=== PATIENT | female | born 1960 | race Caucasian/White ===

== ENCOUNTER 2023-01-28 10:18 | Outpatient (AMB) | payer OTHER, SELFPAY ==
--- NOTE | 2023-01-28 10:19 | MHC.OFFWIV ---
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 no known injuries. 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 Patient manually removed part of her right thumbnail. Now the area is throbbing and painful. PFSH Social History Patient Tobacco Use Status: Former Tobacco user Physical Exam Vital Signs: Last Vital Signs Temp 97.2 F 01/28/23 10:22 Pulse 78 01/28/23 10:22 BP 130/80 01/28/23 10:22 Pulse Ox 97 01/28/23 10:22 Oxygen Delivery Method Room Air 01/28/23 10:22 BMI result Body Mass Index 32.1 Skin Other: Right thumb: Tenderness along the medial margin of the nail. Small granulation tissue present on the side. Assessment & Plan Assessment & Plan (1) Paronychia of right thumb: Code(s): L03.011 - Cellulitis of right finger Plan: Antibiotic and meloxicam called in. If symptoms do not improve to follow-up here. Medications: New sulfamethoxazole-trimethoprim 800-160 mg (Bactrim DS) 1 tab PO BID 10 tabs 0RF 5 days meloxicam 15 mg PO DAILY 14 tabs 0RF Coding Level of Care Code New Pt Level 3 (99675) Diagnoses Paronychia of right thumb L03.011
[2023-01-28 10:22] VITALS: BP 130/80; PULSE 78; TEMP 36.2; O2SAT 97; BMI 32.1
== END 2023-01-28 10:55 | disposition home or self-care (01) ==
PROVIDERS: Visit Provider Internal Medicine
DX: L03.011 Cellulitis of right finger (principal)
CPT/HCPCS: 99203

== ENCOUNTER 2024-04-15 08:35 | Outpatient (REF) | payer OTHER, SELFPAY ==
[2024-04-15 10:43] LABS: Hematocrit 39.6 % (37.0-47.0); Hemoglobin 12.9 g/dl (12.0-16.0); Mean Corpuscular HGB Conc 32.6 g/dl (31.0-35.0); Mean Corpuscular Hemoglobin 28.7 pg (27.0-33.0); Mean Platelet Volume 9.9 fL (9.4-12.3); Platelet Count 398 X10*3/uL (160-400); Red Cell Distribution Width 12.8 % (11.0-16.0); White Blood Count 7.5 X10*3/uL (4.8-10.8)
[2024-04-15 11:09] LABS: Alanine Aminotransferase 16 U/L (0-31); Albumin Level 4.3 g/dL (3.5-5.0); Alkaline Phosphatase 65 U/L (39-117); Anion Gap 11 (12-20); Aspartate Amino Transferase 17 U/L (5-31); Bilirubin Total 0.3 mg/dL (0.0-1.0); Blood Urea Nitrogen 17 mg/dL (9-16); Calcium 9.9 mg/dL (8.4-10.2); Carbon Dioxide 28 mmol/L (22-29); Chloride 107 mmol/L (96-108); Cholesterol 220 mg/dL (<200); Estimated Glomerular Filt Rate > 60; Glucose Fasting 105 mg/dL (60-99); HDL Cholesterol 59 mg/dL (>40); LDL Cholesterol Calculated 130 mg/dL (<100); Potassium 3.8 mmol/L (3.3-5.1); Sodium 142 mmol/L (135-145); Total Protein 7.3 g/dL (6.5-8.0); Triglycerides 156 mg/dL (<150)
[2024-04-15 11:29] LABS: TSH reflex Free T4 2.39 uIU/mL (0.32-4.0); Vitamin D 25-OH Total 28.9 ng/mL (>30)
[2024-04-15 11:32] LABS: Estimated Average Glucose 108 mg/dL; Hemoglobin A1c % 5.4 % (<6.0)
[2024-04-15 11:37] LABS: Folate 13.9 ng/mL (> or = 4.0); Vitamin B12 509 pg/mL (200-900)
[2024-04-15 11:47] LABS: Creatinine Urine 39.41 mg/dL; Microalbumin Urine < 5.0 mg/L
== END 2024-04-15 08:36 | disposition home or self-care (01) ==
LOC: HO.WFDLDS 08:35
PROVIDERS: Visit Provider Nurse Practitioner Family
DX: Z00.00 Encounter for general adult medical examination without abnormal findings (principal); Z13.1 Encounter for screening for diabetes mellitus
CPT/HCPCS: 36415; 80053; 80061; 82043; 82306; 82570; 82607; 82746; 83036; 84443; 85027

== ENCOUNTER 2024-04-27 11:00 | Outpatient (AMB) | payer OTHER, SELFPAY ==
--- NOTE | 2024-04-27 11:21 | MHC.PC.OV ---
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 Required: No Allergies Penicillins Adverse Reaction (Mild, Verified 04/27/24 11:39) rash Medication List - Last Reconciled 04/27/24 by FRED Tavares No Known Home Meds Tobacco use date assessed: 04/27/24 Dental Screening Dental Screen Date: 04/27/24 Did you have a dental visit in the last 12 months?: Yes Did you have a dental problem in the last 6 months where you did not have access to dental care?: No Was dental information given to patient?: Patient has dentist HPI HPI Comments History of Present Illness Details 63 y/o F with Vit D def, HLD, former smoker, ulcerative colitis The patient is a 63-year-old female presenting as a new patient for a CPE. Concerns about oral aphthous ulcers and leg cramps. The patient reports a history of aphthous ulcers in various locations within the oral cavity. Recently, these ulcers have increased in frequency over the last year, particularly one on the tip of the tongue and under the tongue, attributed to stress. Previous use of topical alcohol has been utilized for relief. Additionally, she experiences occasional nausea and jaw pain post-dental procedures, with potential exacerbation due to materials used in dental fillings. The patient also notes experiencing leg cramps for about a year, worsening over the same period. Hydration is mainly through coffee, not counting toward fluid intake. Past management was through electrolyte replenishment strategies like eating pickles or mustard. Previous history includes ulcerative colitis diagnosed in her 30s, leading to regular colonoscopic surveillance every five years, though the current colonic status was not detailed. Health Maintenance - Does not receive flu vaccines as she reports never having had the flu. - Normal blood counts and kidney function. - Borderline high fasting blood sugar: 105 mg/dL, normal A1c: 5.4%. - Hypovitaminosis D, level: 28.9 ng/mL (normal: >30 ng/mL); advised calcium and vitamin D supplementation. - Cholesterol panel shows total cholesterol: 220 mg/dL (normal <200), LDL: 130 mg/dL (normal <100), HDL: 59 mg/dL, triglycerides: 156 mg/dL (normal <150). - Bone density testing recommended. - Routine colonoscopy planned due to past ulcerative colitis. - Recent mammogram completed earlier this year. Tdap 2020 Physical Exam General: Well developed, well nourished, in no acute distress. Appears stated age. Head: Normocephalic, atraumatic. Eyes: Pupils are equal, round and reactive to light and accommodation. Conjunctivae are clear. Vision grossly normal. Ears: Tympanic membranes clear bilaterally, external auditory canal within normal limits Nose: Patent, without discharge. Mouth: There are ulcers noted on the tip of the tongue. No inflammation, no post nasal drip, no plaques nor exudates. Neck: Supple, no adenopathy or thyromegaly. Lungs: Clear to auscultation bilaterally. No rales, rhonchi or wheeze noted. Good air flow in all parham. Heart: Regular rate and rhythm. No murmurs, click, rubs or gallops are noted. Abdomen: Bowel sounds present in all quadrants. The abdomen is soft, nontender, with no masses or organomegaly noted. No hernias are noted. Musculoskeletal: Joints are nontender, without swelling, redness, or effusions. Range of motion is observed to be normal. Pulses: Peripheral pulses are equal and palpable bilaterally. Extremities: No clubbing, cyanosis noted. Swelling in feet noted at the end of the day, resolves by morning. Neurologic: Gait and station normal. Cranial Nerves 2-12 intact. Motor strength grossly symmetrical and intact. No sensory loss. Balance normal. Skin: No rashes, ulcers, or lesions noted. Turgor is good. Skin color is good. Hair and nails are without abnormalities. Psych: Normal eye contact, affect and mood appropriate, and normal interactions. Patient is alert and appropriate to context. Results - Lab: Normal blood counts, normal electrolytes, borderline glucose, normal A1c, low vitamin D. Labs from 04/15/2024 show a normal CBC, normal electrolytes, normal renal function, fasting glucose of 105, hemoglobin A1c 5.4%, normal LFTs, elevated total cholesterol 220, triglycerides 156, LDL 130, HDL 59, normal B12, low vitamin-D 28.9, normal TSH and folate, normal urine microalbumin creatinine ratio Plan - For oral aphthous ulcers, prescribe Valacyclovir for episodic treatment. Encourage earlier intervention at ulcer onset. - For leg cramps, suggest pickles or mustard. Encourage increased water intake for proper hydration. - Hyperlipidemia management through dietary modifications targeting LDL reduction. - Initiate calcium and vitamin D supplementation due to insufficiency. - Schedule bone density scan and colonoscopy due to ulcerative colitis history. - Reassess fasting labs in six months to monitor metabolic parameters. - Provide general lifestyle advice and monitor health maintenance metrics closely, including routine mammography and potential influenza vaccination discussion. Patient was informed and verbally consented to the use of an ambient scribe for clinic note documentation during this visit. Discussion Notes During the consultation, I reviewed the management and treatment options for the patient's oral ulcers, suspecting a viral etiology possibly linked to stress. I prescribed Valacyclovir and discussed the administration at the onset of symptoms. For the leg cramps, I recommended dietary interventions such as ingestion of brine or mustard to alleviate cramping and highlighted the importance of adequate hydration. We discussed the implications of her current cholesterol levels and borderline blood sugar levels and developed a plan for dietary modifications to reduce LDL cholesterol. Additionally, I recommended initiating calcium and vitamin D supplements due to low levels of vitamin D and potential implications for bone health. We agreed on a plan to schedule a bone density test and colonoscopy. The patient was informed of the importance of keeping routine follow-up appointments to monitor her progress, and agreed to revisit lab tests in six months. Patient Instructions - Begin Valacyclovir at the earliest symptom of oral ulcer occurrence. - Increase water intake throughout the day. - Incorporate pickle juice or mustard into the diet as needed for leg cramps. - Focus on dietary changes to help lower cholesterol. - Start calcium and vitamin D supplements as advised. - Schedule recommended bone density scan and colonoscopy. - Return for follow-up labs in six months to monitor cholesterol and glucose levels. - Use the patient portal for appointment scheduling and accessing test results. An additional 15 minutes was spent addressing the problem(s) noted at todays visit. This includes time spent before the visit reviewing the chart, time spent during the visit, and time spent after the visit on documentation [facility] Medical History (Updated 04/27/24 @ 17:19 by Jerilyn Medina [facility]-) Breast adenoma Surgical History (Updated 04/27/24 @ 11:28 by Romie Cristina MA) H/O breast surgery Family History Mother Hypertension Paternal Grandfather Diabetes Paternal Grandmother Diabetes Father Cardiovascular disease Sister Cancer of kidney Social History (Updated 04/27/24 @ 11:25 by Romie Cristina MA) Household Members: Spouse Both parents involved: No Caregiver staying overnight: No Housing: House Are you a primary child care teacher to a significant other at home: No Do you presently have visiting nurse or other home services: No 75 years or older and lives alone: No Alcohol intake: current Alcohol intake frequency: a few times a month Patient Tobacco Use Status: Never used Tobacco e-Cigarette/Vaping Use: Never Used Second Hand Smoke Exposure: No service: No Current occupational status: employed Current occupation: [employer] Cognitive needs: No Hearing needs: No Vision needs: Yes (wear glasses) Questionnaire PHQ-9 Over the last 2 weeks, how often have you been bothered by any of the following problems? 1. Little interest or pleasure in doing things: not at all 2. Feeling down, depressed, or hopeless: several days 3. Trouble falling or staying asleep, or sleeping too much: not at all 4. Feeling tired or having little energy: not at all 5. Poor appetite or overeating: several days 6. Feeling bad about yourself - or that you are a failure or have let yourself or your family down: several days 7. Trouble concentrating on things, such as reading the newspaper or watching television: not at all 8. Moving or speaking so slowly that other people could have noticed. Or the opposite - being so fidgety or restless that you have been moving around a lot more than usual: not at all 9. Thoughts that you would be better off or of hurting yourself in some way: not at all Total score: 3 Depression Screening Interpretation: Negative Depression Screening Done: Yes 23491 - PHQ-9 Billing: Yes Source: Developed by Drs. Froylan Pena, Heavenly Molina, Facundo Addison and colleagues, with an educational terrence from [employer] Thrive Questionnaire Date Thrive assessed: 04/27/24 I am a: Patient What is your living situation today?: I have a steady place to live Within the past 12 months, did the food you bought not last and you didn't have the money to get more?: Never true Within the past 12 months, did you worry whether your food would run out before you got money to buy more?: Never true Do you have trouble paying for medicines?: No Do you have trouble getting transportation to medical appointments?: No Do you have trouble paying your heating and electricity bill?: No Do you have trouble taking care of your child, family member or friend?: No Do you have trouble with day-to-day activities such as bathing, preparing meals, shopping, managing finances, etc.?: No Are you currently unemployed and looking for a job?: No Are you interested in more education?: No Please select the resources that you would like help with: None Currently or been in a relationship where the following occur: No concerns reported THRIVE Score: 0 AUDIT C Alcohol Use Questionnaire (AUDIT-C) 1. How often do you have a drink containing alcohol?: Monthly or less 2. How many drinks containing alcohol do you have on a typical day when you are drinking?: 1 or 2 3. How often do you have six or more drinks on one occasion?: Never Total Score: 1 Score Reviewed/Action Taken: Yes BENJY-7 AMB Questionnaire BENJY-7 Date BENJY - 7 assessed: 04/27/24 Feeling nervous, anxious, or on edge: 1 = Several days Not being able to stop or control worryin = Several days Worrying too much about different things: 1 = Several days Trouble relaxin = Several days Being so restless that it is hard to sit still: 0 = Not at all Becoming easily annoyed or irritable: 1 = Several days Feeling afraid as if something awful might happen: 1 = Several days Total BENJY-7 score (0-4 normal; 5-9 mild; 10-14 moderate; 15-21 severe): 6 Source: Developed by Drs. Froylan Pena, Heavenly Molina, Facundo Addison and colleagues, with an educational terrence from [employer] BENJY-7 Assessment Billing BENJY-7 Assessment Tool: BENJY-7 Assessment 03460 Physical exam (Primary Care) Vital Signs: Last Vital Signs Pulse 75 04/27/24 11:28 Resp 13 04/27/24 11:28 BP 122/70 04/27/24 11:28 Pulse Ox 96 04/27/24 11:28 Oxygen Delivery Method Room Air 04/27/24 11:28 BMI result Body Mass Index 31.5 BMI Assessment/Plan discussion: High BMI High, discussed plan: lifestyle Tobacco/Smoking Status: Tobacco use Status Tobacco use date assessed 04/27/24 04/27/24 11:30 Patient Tobacco Use Status Never used Tobacco 04/27/24 11:30 e-Cigarette/Vaping Use Never Used 04/27/24 11:30 PHQ-9: PHQ-9 Score PHQ-9: Total score 3 04/27/24 11:50 Depression Screening Interpretation: Negative Thrive Assessment: Date of Thrive Assessment Date Thrive assessed 04/27/24 04/27/24 11:30 Currently or been in a relationship where the following occur: No concerns reported Coding Level of Care Code New Pt Level 2 (69099) New Pt Prev Care 40-64y(61638) Diagnoses Encounter for general adult medical examination without abnormal findings Z00.00 Vitamin D deficiency E55.9 Moderate mixed hyperlipidemia not requiring statin therapy E78.2 Hyperlipidemia type: moderate mixed hyperlipidemia not requiring statin therapy Recurrent oral ulcers K13.79 Leg cramps R25.2 Ulcerative colitis without complications, unspecified location K51.90 Ulcerative colitis location: unspecified ulcerative colitis location Digestive disease complication type: without complication BMI 31.0-31.9,adult Z68.31 Class 1 obesity due to excess calories with serious comorbidity and body mass index (BMI) of 31.0 to 31.9 in adult E66.811; E66.09; Z68.31 Obesity type: due to excess calories Serious obesity comorbidity presence: with serious comorbidity Additional Codes BENJY-7 Assessment Billing - BENJY-7 Assessment Tool: BENJY-7 Assessment 49711 ([id number]) PHQ-9 - 10763 - PHQ-9 Billing: Yes ([id number]) Assessment & Plan Assessment & Plan (1) Encounter for general adult medical examination without abnormal findings: Code(s): Z00.00 - Encounter for general adult medical examination without abnormal findings Category: Medical (2) Vitamin D deficiency: Code(s): E55.9 - Vitamin D deficiency, unspecified Category: Medical (3) Hyperlipidemia: Code(s): E78.5 - Hyperlipidemia, unspecified Category: Medical Qualifiers: Hyperlipidemia type: moderate mixed hyperlipidemia not requiring statin therapy Qualified Code(s): E78.2 - Mixed hyperlipidemia (4) Recurrent oral ulcers: Code(s): K13.79 - Other lesions of oral mucosa Category: Medical (5) Leg cramps: Code(s): R25.2 - Cramp and spasm Category: Medical (6) Ulcerative colitis: Code(s): K51.90 - Ulcerative colitis, unspecified, without complications Category: Medical Qualifiers: Ulcerative colitis location: unspecified ulcerative colitis location Digestive disease complication type: without complication Qualified Code(s): K51.90 - Ulcerative colitis, unspecified, without complications (7) BMI 31.0-31.9,adult: Code(s): Z68.31 - Body mass index [BMI] 31.0-31.9, adult Category: Medical (8) Class 1 obesity with body mass index (BMI) of 31.0 to 31.9 in adult: Comment: HLD Code(s): E66.811 - Obesity, class 1; Z68.31 - Body mass index [BMI] 31.0-31.9, adult Category: Medical Qualifiers: Obesity type: due to excess calories Serious obesity comorbidity presence: with serious comorbidity Qualified Code(s): E66.811 - Obesity, class 1; E66.09 - Other obesity due to excess calories; Z68.31 - Body mass index [BMI] 31.0-31.9, adult Plan . Orders: Orders XR DEXA axial skeleton Today E55.9 - Vitamin D deficiency, unspecified, Z13.820 - Encounter for screening for osteoporosis Lipid Panel 6 Months E55.9 - Vitamin D deficiency, unspecified, E78.5 - Hyperlipidemia, unspecified Comprehensive [place]. Panel Fast 6 Months E55.9 - Vitamin D deficiency, unspecified, E78.5 - Hyperlipidemia, unspecified Vitamin D 25-OH Total 6 Months E55.9 - Vitamin D deficiency, unspecified, E78.5 - Hyperlipidemia, unspecified Referrals Gastroenterology Referral Z12.11 - Encounter for screening for malignant neoplasm of colon Medications: New valacyclovir (Valtrex) 500 mg PO Q12H 60 tabs 1RF Patient Instructions: Health screenings for women You should visit your health care provider from time to time, even if you are healthy. The purpose of these visits is to: Screen for medical issues Assess your risk for future medical problems Encourage a healthy lifestyle Update vaccinations and other preventive care services Help you get to know your provider in case of an illness Information Even if you feel fine, you should still see your provider for regular checkups. These visits can help you avoid problems in the future. For example, the only way to find out if you have high blood pressure is to have it checked regularly. High blood sugar and high cholesterol levels also may not have any symptoms in the early stages. A simple blood test can check for these conditions. There are specific times when you should see your provider or receive specific health screenings. The [place] Preventive Services Task Force publishes a list of recommended screenings. Below are screening guidelines for women ages 18 to 39. BLOOD PRESSURE SCREENING Your blood pressure should be checked at least once every 3 to 5 years if: Your blood pressure is in the normal range (top number less than 120 mm Hg and bottom number less than 80 mm Hg) You don't have risk factors for high blood pressure Ask your provider if you need your blood pressure checked more often if: The top number is 120 to 129 mm Hg or the bottom number is 70 to 79 mm Hg You have diabetes, heart disease, kidney problems, are overweight, or have certain other health conditions You have a first-degree relative with high blood pressure You are Black You had high blood pressure during a If the top number is 130 mm Hg or greater or the bottom number is 80 mm Hg or greater, this is considered stage 1 hypertension. Schedule an appointment with your provider to learn how you can reduce your blood pressure. Watch for blood pressure screenings in your area. Ask your provider if you can stop in to have your blood pressure checked. BREAST CANCER SCREENING Experts do not agree about the benefits of breast self-exams in finding breast cancer or saving lives. Talk to your provider about what is best for you. A screening mammogram is not recommended for most women under age 40. Your provider may discuss and recommend mammograms, MRI scans, or ultrasounds if you have an increased risk for breast cancer, such as: A mother or sister who had breast cancer at a young age (most often starting screening earlier than the age the close relative was diagnosed) You carry a high-risk genetic marker CERVICAL CANCER SCREENING Cervical cancer screening should start at age 21 years unless your provider advises otherwise. After the first test: Women ages 21 through 29 should have a Pap test every 3 years. Exoprts do not agree on whether HPV testing is recommended for this age group. Women ages 30 through 65 should be screened with either a Pap test every 3 years or the HPV test every 5 years or both tests every 5 years (called cotesting ). Women who have been treated for precancer (cervical dysplasia) should continue to have Pap tests for 20 years after treatment or until age 65, whichever is longer. If you have had your uterus and cervix removed (total hysterectomy), and you have not been diagnosed with cervical cancer or precancer (high grade cervical neoplasia), you do not need cervical cancer screening. CHOLESTEROL SCREENING Cholesterol screening should begin at: Age 45 for women with no known risk factors for coronary heart disease Age 20 for women with known risk factors for coronary heart disease Repeat cholesterol screening should take place: Every 5 years for women with normal cholesterol levels More often if changes occur in lifestyle (including weight gain and diet) More often if you have diabetes, heart disease, kidney problems, or certain other conditions DIABETES SCREENING You should be screened for diabetes starting at age 35 and then repeated every 3 years if you have no risk factors for diabetes. Screening may need to start earlier and be repeated more often if you have other risk factors for diabetes, such as: You have a first degree relative with diabetes. You are overweight or have obesity. You have high blood pressure, prediabetes, or a history of heart disease. Screening for diabetes should be done if you are planning to become and you are overweight and have other risk factors such as high blood pressure. DENTAL EXAM Go to the dentist once or twice every year for an exam and cleaning. Your dentist will evaluate if you need more frequent visits. EYE EXAM Have an eye exam every 5 to 10 years before age 40. If you have vision problems, have an eye exam every 2 years or more often if recommended by your provider. You should have an eye exam that includes an examination of your retina (back of your eye) at least every year if you have diabetes. IMMUNIZATIONS Commonly needed vaccines include: Flu shot: get one every year. COVID-19 vaccine: ask your provider what is best for you. Tetanus-diphtheria and acellular pertussis (Tdap) vaccine: have one at or after age 19 as one of your tetanus-diphtheria vaccines if you did not receive it as an adolescent. Tetanus-diphtheria: have a booster (or Tdap) every 10 years. Varicella vaccine: receive 2 doses if you never had chickenpox or the varicella vaccine. Hepatitis B vaccine: receive 2, 3, or 4 doses, depending on your exact circumstances. Measles, mumps, and rubella (MMR) vaccine: receive 1 to 2 doses if you are not already immune to MMR. Your provider can tell you if you are immune. Ask your provider about the human papillomavirus (HPV) vaccine if: You have not received the HPV vaccine in the past You have not completed the full vaccine series (you should catch up on this shot) Ask your provider if you should receive other immunizations if you have certain health problems that increase your risk for some diseases such as pneumonia. INFECTIOUS DISEASE SCREENING Women who are sexually active should be screened for chlamydia and gonorrhea up until age 25. Women 25 years and older should be screened for chlamydia and gonorrhea if at high risk. Screening for hepatitis C: All adults ages 18 to 79 should get a one-time test for hepatitis C. people should be screened at every . Screening for human immunodeficiency virus (HIV): All people ages 15 to 65 should get a one-time test for HIV. Depending on your lifestyle and medical history, you may also need to be screened for infections such as syphilis and HIV, as well as other infections. PHYSICAL EXAM All adults should visit their provider from time to time, even if they are healthy. The purpose of these visits is to: Screen for disease Assess your risk of future medical problems Encourage a healthy lifestyle Update your vaccinations and other preventive care services Maintain a relationship with a provider in case of an illness Your height, weight, and BMI should be checked at every exam. During your exam, your provider may ask you about: Depression and anxiety Diet and exercise Alcohol and tobacco use Safety issues, such as using seat belts, smoke detectors, and intimate partner violence Your medicines and risk for interactions SKIN SELF-EXAM Your provider may check your skin for signs of skin cancer, especially if you're at high risk, such as if you: Have had skin cancer before Have close relatives with skin cancer Have a weakened immune system OTHER SCREENING Talk with your provider about colon cancer screening if you have a strong family history of colon cancer or polyps, or if you have had inflammatory bowel disease or polyps yourself. Routine bone density screening of women under 40 is not recommended. Walk-In Care (Urgent Care): [facility] Walk-in for urgent medical issues such as: ? Seasonal Allergies ? Insect Bites ? Cough ? Diarrhea ? Acute Asthma Attacks ? Back, Knee or Joint Pain ? Ear Infection ? Fever without a Rash ? Headaches ? Nausea ? Lawn Eye, Rash or Skin Irritation ? Sore Throat ? Sports Physicals ? Vomiting Most insurances are accepted. Patients do not need to be part of the [facility] to seek care at the walk-in clinic. Locations [address] [facility] , [place] [address] ? [phone] [facility] in [place] provides services to ages 18 and over. Open Saturday-Saturday: 8 a.m. to 5 p.m. and Saturday: 9 a.m. to 3 p.m.* *Hours may vary due to staffing availability. To confirm Walk-In Care hours in [place], please call [phone]. [address] [place] [id number] ? [phone] [facility] [facility]-In [facility] in [place] provides services to ages 12 and over. Open Saturday-Saturday: 8 a.m. to 5 p.m. Hours may vary due to staffing availability. To confirm Walk-In Care hours in [place], please call [phone]. LABORATORY SERVICES: [facility] Lab ? Primary Location [address] [place] [address] Saturday through Saturday 6:00 AM ? 5:00 PM Saturday 7:00 AM ? 11:00 AM* [phone] The [facility] Lab is centrally located near the front entrance of the [facility] for easy outpatient access. Convenient parking is provided for outpatients. *Hours may vary due to staffing availability. To confirm Laboratory hours for any location, please call [phone]. Offsite Location For your convenience, we offer offsite laboratory draw stations at the following locations: [address] [place] [address] ? [facility] [address], [address] Saturday through Saturday 7:30 AM ? 1:00 PM* [phone] *Hours may vary due to staffing availability. To confirm Laboratory hours for any location, please call [phone]. David ? Felipa Sainz 1963 [address] [place] Saturday through Saturday 6:00 AM ? 3:30 PM* Saturday 6:30 AM ? 3 PM* [phone] *Hours may vary due to staffing availability. To confirm Laboratory hours for any location, please call [phone]. 140 [facility] Saturday through Saturday 7:30 AM ? 4:00 PM* [phone] *Hours may vary due to staffing availability. To confirm Laboratory hours for any location, please call [phone]. [address] [facility] Saturday through 9:00 AM ? 4:00 PM* *Hours may vary due to staffing availability. To confirm Laboratory hours for any location, please call [phone]. Appointments are not necessary. Walk-ins are welcome. Like all the departments throughout the [facility], our Lab undergoes frequent reviews to ensure the quality and accuracy of test results, and our staff takes special pride in its status as a nationally accredited facility. Patient Portal: ONE PATIENT. ONE RECORD. BETTER CARE. [facility] has a fully integrated, cutting-edge mobile electronic health information system that has revolutionized the way we care for our patients and manage our organization. This system improves communication and coordination enabling us to provide safe, higher-quality care, and an overall positive experience for staff and patients. Our first priority, as always, is to deliver the highest quality care possible. The system is running in the background supporting that priority. This portal is for all [facility] services and practices. If you are experiencing any technical difficulties with enrolling or logging into the Patient Portal please complete the [facility] Patient Portal Technical Support Form. [facility] now offers a new secure on-line interactive tool for patients to review their health information ? Patient Portal. This interactive web portal will enable patients and their families to take an active role in their care by providing easy, secure access to their health information via the internet. The Patient Portal provides patients with instant access to their health information, including laboratory results, medications, allergies, demographic information, visit history, and more. In addition to managing their own care, parents and health care proxies with authorized consent will appreciate the ability to access the records of those individuals for whom they provide care. Please note: if you wish to gain access (Proxy) to another patient?s portal, you will be required to come to the Medical Records Department in person at [facility]. Both the patient giving proxy access and the proxy will need to provide photo identification and complete the appropriate authorization. The Patient Portal also allows track their appointments online. The [facility] Patient Portal also saves patients time by allowing them to submit updates to their demographic and contact information prior to their visits. Portal email notifications will also alert patients to any new activity on their portal, such as test results and new appointments. In order to initially enroll in the [facility] Patient Portal, you will need to enter some required information including the following: ? your [facility] Medical Record number ? your personal home email address ? name ? date of Please note: In order to enroll in the [facility] Patient Portal, we need to have your email address on file in your electronic medical record. The email address needs to be specific for one person (yourself) in order for your Portal enrollment to be successful. You can update your email address in person with our Registration staff when you are registering for a hospital visit. Otherwise, you will need to come to the Health Information Management (Medical Records) Department at [facility]. We are open from Saturday ? Saturday from 7:30 a.m. ? 4:30 p.m. You will be required to present a photo id. Once you have successfully enrolled in the Patient Portal, you will receive a one-time user id and password for the Portal, sent to your email address. This will allow you to log into the Patient Portal within 99 hrs and reset your own logon id and password, and define personal security questions. Once your permanent login and password have been set, you can log into the [facility] Patient Portal at any time via the blue button above or from the Portal Logon button on any page of the [facility] website. [facility] encourage all of our patients to enroll in Patient Portal as it presents a valuable opportunity for patients and their families to actively participate in their care and stay healthy Welcome to [facility]. We look forward to working with you.
[2024-04-27 11:28] VITALS: BP 122/70; PULSE 75; RESP 13; O2SAT 96; BMI 31.5
== END 2024-04-27 12:08 | disposition home or self-care (01) ==
PROVIDERS: PCP Nurse Practitioner Family; Visit Provider Nurse Practitioner Family
DX: Z00.00 Encounter for general adult medical examination without abnormal findings (principal); K51.90 Ulcerative colitis, unspecified, without complications; E66.811 Obesity, class 1; Z68.31 Body mass index [BMI] 31.0-31.9, adult; K13.79 Other lesions of oral mucosa; E55.9 Vitamin D deficiency, unspecified; E78.2 Mixed hyperlipidemia; R25.2 Cramp and spasm

== ENCOUNTER → 2024-04-27 11:00 | Outpatient (BNVA) | payer OTHER, SELFPAY | PROVIDERS: PCP Nurse Practitioner Family; Visit Provider Nurse Practitioner Family | DX: Z00.00 Encounter for general adult medical examination without abnormal findings (principal); E55.9 Vitamin D deficiency, unspecified; E78.2 Mixed hyperlipidemia; K13.79 Other lesions of oral mucosa; R25.2 Cramp and spasm; K51.90 Ulcerative colitis, unspecified, without complications; E66.811 Obesity, class 1; E66.09 Other obesity due to excess calories; Z68.31 Body mass index [BMI] 31.0-31.9, adult | CPT/HCPCS: 96127 ==

== ENCOUNTER 2024-05-21 10:49 | Outpatient (REF) | payer OTHER, SELFPAY ==
--- NOTE | ~2024-05-21 | MM_ITS ---
EXAMINATION: BONE DENSITOMETRY CLINICAL INDICATION: Vitamin D deficiency. COMPARISON: This is the patient's baseline examination. TECHNIQUE: Using a [employer] DXA System (software version: 13.1) manufactured by [employer], dual-energy x-ray absorptiometry was performed of the lumbar spine and left hip. The images are of good technical quality. Summary results are attached. FINDINGS: LEFT FEMUR, NECK: BMD 0.918 g/cm2, Z-score 0.1, T-score -0.9, normal. LEFT FEMUR, TOTAL: BMD 0.938 g/cm2, Z-score 0.1, T-score -0.6, normal. AP SPINE L1-L4: BMD 1.047 g/cm2, Z-score -0.2, T-score -1.1, osteopenia. IDENTIFIED RISK FACTORS: Menopause. HISTORY OF FRACTURE: None listed. MEDICATIONS: None listed. MM/XR DEXA axial skeleton IMPRESSION: 1. DIAGNOSIS: Osteopenia based on the lowest T-score value of -1.1 in the lumbar spine applying World Health Organization criteria. 2. 10-YEAR FRACTURE RISK PREDICTION, FRAX: Major osteoporotic fracture (clinical spine, forearm, hip or shoulder) 7.2%. Hip fracture 0.4%. 3. Treatment Recommendations: NOF guidelines recommend consideration for treatment in postmenopausal women and men age 50 and older presenting with the following: -A hip or vertebral (clinical or morphometric) fracture. -T-score less than or equal to -2.5 at the femoral neck or spine after appropriate evaluation to exclude secondary causes. -Low bone mass at the hip or spine and a 10-year fracture probability by FRAX of greater than or equal to 3% for hip fracture or greater than or equal to 20% for major osteoporotic fracture based on the [place] adapted WHO algorithm. 4. Other Recommendations: All treatment decisions require clinical judgment and consideration of individual patient factors, including patient preferences, comorbidities, previous drug use, risk factors not captured in the FRAX model (e.g. frailty, falls, vitamin D deficiency, increased bone turnover, interval significant decline in bone density) and possible under or overestimation of fracture risk by FRAX. Additional medical evaluation for secondary cause of low bone mineral density may be appropriate. FUTURE SCAN RECOMMENDATION: People with diagnosed cases of osteoporosis or at high risk for fracture should have regular bone mineral density tests. For patients eligible for Medicare, routine testing is allowed once every 2 years. The testing frequency can be increased to one year for patients who have rapidly progressing disease, those who are receiving or discontinuing medical therapy to restore bone mass, or have additional risk factors. Electronically signed by: Jayleen Rasheed MD 05/21/2024 12:44 PM [place]
== END 2024-05-21 10:50 | disposition home or self-care (01) ==
LOC: HO.MAMMO 10:49
PROVIDERS: PCP Nurse Practitioner Family; Visit Provider Nurse Practitioner Family
DX: Z13.820 Encounter for screening for osteoporosis (principal); M85.80 Other specified disorders of bone density and structure, unspecified site; E55.9 Vitamin D deficiency, unspecified
CPT/HCPCS: 77080

== ENCOUNTER 2024-07-01 12:53 | Outpatient (AMB) | payer OTHER, SELFPAY ==
--- NOTE | 2024-07-01 12:54 | MHC.PC.OV ---
Vital Signs 07/01/24 13:00 Height 5 ft 4 in Weight 188 lb 4 oz BMI 32.3 BP 134/70 Blood Pressure Location Rt brachial Position Sitting Respiration 14 Pulse 80 Pulse Source Pulse Oximeter Temp 97.5 F Temp Source Oral Pulse Oximetry (%) 97 Oxygen Delivery Method Room Air Intake Visit Reasons: fatigued/pain in torso/colonoscapy referral Intake Note: Patient complaining of abd px and mostly on the sides of abd, patient also has been going to the bathroom alot since . 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: No Allergies Penicillins Adverse Reaction (Mild, Verified 07/01/24 13:18) rash Medication List - Last Reconciled 07/01/24 by STEVE Tavares- No Known Home Meds Tobacco use date assessed: 04/27/24 Dental Screening Dental Screen Date: 04/27/24 HPI HPI Comments History of Present Illness Details 64-year-old female with vitamin-D deficiency recurrent aphthous ulcers, ulcerative colitis, impaired fasting glucose, hyperlipidemia, obesity, former smoker, osteopenia Health maintenance Flu vaccine declined DExA 05/2024 Osteopenia based on the lowest T-score value of -1.1 in the lumbar spine applying World Health Organization criteria. Colonoscopy overdue, repeat should have been done in 2022; last done at [facility] + polyps Mammogram 2023 Tdap 2020 Pap Specialist GI referral placed for colonoscopy April of 2024 Here today with complaints of abdominal pain and diarrhea Last , started w/ body aches around her ribs assoc w diarrhea feels fatigued then developed a headache few days into her illness The body aches are better but still there Yesterday, lower back buttocks and upper thighs were sore Taking APAP with + relief Last night took Nyquil. Had diarrhea last night. Cont w/ back pain. Took NSAID at 0500 and was able to nap she is worried about about her hx of UC did see a little bit of blood She is overdue for her colonoscopy, due in 2022 GI appt [place] [facility] not booking until September She was able to tolerate p.o. intake Exam Awake alert oriented, no acute distress Sclera nonicteric Mucous membranes moist Abdomen soft, tender over the left lower and right lower quadrant without rebound, hyperactive bowel sounds x4, no peritoneal signs Skin pink warm and dry Plan Check CT of the abdomen and pelvis with p.o. contrast. Check CBC and CMP along with lipase and amylase today. Advised to have diet as tolerated specifically include electrolyte fluids such as Gatorade or broth. Educated to seek emergency room level care should she develop worsening of symptoms. In regards to the GI referral for her repeat colonoscopy, she is going to call around to the local GI offices to see who can see her soonest and who works with her insurance. She will send me a portal message to let me know who I can update the referral to. I will follow up with her once the imaging in the labs are back. Total time spent caring for the patient today was 30 minutes. This includes time spent before the visit reviewing the chart, time spent during the visit, and time spent after the visit on documentation, reviewing laboratory results, diagnostic imaging, medications, performing a medically necessary evaluation, counseling on diagnoses, care coordination, ordering appropriate tests, ordering appropriate medications, review of tests performed by other providers, reporting test results with the patient, communication with other healthcare providers. This note is constructed using voice recognition software. While every effort has been made to ensure accuracy in commercial account officer, still errors may have been included Sometimes, these errors may affect the content or meaning of the given sentence . [facility] Medical History (Updated 07/01/24 @ 13:45 by Jerilyn Medina [facility]) Breast adenoma Surgical History (Updated 04/27/24 @ 11:28 by Romie [place] MA) H/O breast surgery Family History Mother Hypertension Paternal Grandfather Diabetes Paternal Grandmother Diabetes Father Cardiovascular disease Sister Cancer of kidney Social History (Updated 04/27/24 @ 11:25 by Romie Cristina MA) Household Members: Spouse Housing: House Are you a primary career development counselor to a significant other at home: No Do you presently have visiting nurse or other home services: No Alcohol intake: current Alcohol intake frequency: a few times a month Patient Tobacco Use Status: Never used Tobacco e-Cigarette/Vaping Use: Never Used Second Hand Smoke Exposure: No service: No Current occupational status: employed 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 1. Little interest or pleasure in doing things: several days 2. Feeling down, depressed, or hopeless: several days 3. Trouble falling or staying asleep, or sleeping too much: several days 4. Feeling tired or having little energy: several days 5. Poor appetite or overeating: several days 6. Feeling bad about yourself - or that you are a failure or have let yourself or your family down: several days 7. Trouble concentrating on things, such as reading the newspaper or watching television: several days 8. Moving or speaking so slowly that other people could have noticed. Or the opposite - being so fidgety or restless that you have been moving around a lot more than usual: not at all 9. Thoughts that you would be better off or of hurting yourself in some way: not at all Total score: 7 Depression Screening Interpretation: Positive Depression Screening Follow-up: Existing condition Depression Screening Done: Yes 23978 - PHQ-9 Billing: Yes Source: Developed by Drs. Froylan Pena, Heavenly [place], Facundo Addison and colleagues, with an educational terrence from [employer]. Thrive Questionnaire Date Thrive assessed: 07/01/24 I am a: Patient What is your living situation today?: I have a steady place to live Within the past 12 months, did the food you bought not last and you didn't have the money to get more?: Never true Within the past 12 months, did you worry whether your food would run out before you got money to buy more?: Never true Do you have trouble paying for medicines?: No Do you have trouble getting transportation to medical appointments?: No Do you have trouble paying your heating and electricity bill?: No Do you have trouble taking care of your child, family member or friend?: No Do you have trouble with day-to-day activities such as bathing, preparing meals, shopping, managing finances, etc.?: No Are you currently unemployed and looking for a job?: Yes Are you interested in more education?: Yes Please select the resources that you would like help with: None Currently or been in a relationship where the following occur: No concerns reported THRIVE Score: 0 AUDIT C Alcohol Use Questionnaire (AUDIT-C) 1. How often do you have a drink containing alcohol?: Monthly or less 2. How many drinks containing alcohol do you have on a typical day when you are drinking?: 1 or 2 3. How often do you have six or more drinks on one occasion?: Never Total Score: 1 Score Reviewed/Action Taken: Yes BENJY-7 AMB Questionnaire BENJY-7 Date BENJY - 7 assessed: 07/01/24 Feeling nervous, anxious, or on edge: 1 = Several days Not being able to stop or control worryin = Several days Worrying too much about different things: 1 = Several days Trouble relaxin = Several days Being so restless that it is hard to sit still: 0 = Not at all Becoming easily annoyed or irritable: 1 = Several days Feeling afraid as if something awful might happen: 1 = Several days Total BENJY-7 score (0-4 normal; 5-9 mild; 10-14 moderate; 15-21 severe): 6 Source: Developed by Drs. Froylan Pena, Heavenly [place], Facundo Addison and colleagues, with an educational terrence from [employer]. BENJY-7 Assessment Billing BENJY-7 Assessment Tool: BENJY-7 Assessment 40285 Physical exam (Primary Care) Vital Signs: Last Vital Signs Temp 97.5 F 07/01/24 13:00 Pulse 80 07/01/24 13:00 Resp 14 07/01/24 13:00 BP 134/70 07/01/24 13:00 Pulse Ox 97 07/01/24 13:00 Oxygen Delivery Method Room Air 07/01/24 13:00 BMI result Body Mass Index 32.3 Tobacco/Smoking Status: Tobacco use Status Tobacco use date assessed 04/27/24 07/01/24 12:57 Patient Tobacco Use Status Never used Tobacco 07/01/24 12:57 e-Cigarette/Vaping Use Never Used 07/01/24 12:57 PHQ-9: PHQ-9 Score PHQ-9: Total score 7 07/01/24 12:57 Depression Screening Interpretation: Positive Depression Screening Follow-up: Existing condition Thrive Assessment: Date of Thrive Assessment Date Thrive assessed 07/01/24 07/01/24 12:57 Currently or been in a relationship where the following occur: No concerns reported Coding Level of Care Code Est Pt Level 4 (26584) Complex EM visit Add On G2211 Diagnoses Ulcerative colitis without complications, unspecified location K51.90 Ulcerative colitis location: unspecified ulcerative colitis location Digestive disease complication type: without complication Diarrhea, unspecified type R19.7 Diarrhea type: unspecified type Lower abdominal pain R10.30 Abdominal location: lower abdomen, unspecified Additional Codes BENJY-7 Assessment Billing - BENJY-7 Assessment Tool: BENJY-7 Assessment 73546 ([id number]) PHQ-9 - 49348 - PHQ-9 Billing: Yes ([id number]) Assessment & Plan Assessment & Plan (1) Ulcerative colitis: Code(s): K51.90 - Ulcerative colitis, unspecified, without complications Category: Medical Qualifiers: Ulcerative colitis location: unspecified ulcerative colitis location Digestive disease complication type: without complication Qualified Code(s): K51.90 - Ulcerative colitis, unspecified, without complications (2) Diarrhea: Code(s): R19.7 - Diarrhea, unspecified Category: Medical Qualifiers: Diarrhea type: unspecified type Qualified Code(s): R19.7 - Diarrhea, unspecified (3) Abdominal pain: Code(s): R10.9 - Unspecified abdominal pain Category: Medical Qualifiers: Abdominal location: lower abdomen, unspecified Qualified Code(s): R10.30 - Lower abdominal pain, unspecified Plan . Orders: Orders CT abdomen pelvis wo IV con Today K51.90 - Ulcerative colitis, unspecified, without complications, R10.9 - Unspecified abdominal pain, R19.7 - Diarrhea, unspecified Complete Blood Count no Diff Today K51.90 - Ulcerative colitis, unspecified, without complications, R10.9 - Unspecified abdominal pain, R19.7 - Diarrhea, unspecified Comprehensive Met. Panel Today K51.90 - Ulcerative colitis, unspecified, without complications, R10.9 - Unspecified abdominal pain, R19.7 - Diarrhea, unspecified Amylase Today K51.90 - Ulcerative colitis, unspecified, without complications, R10.9 - Unspecified abdominal pain, R19.7 - Diarrhea, unspecified Lipase Today K51.90 - Ulcerative colitis, unspecified, without complications, R10.9 - Unspecified abdominal pain, R19.7 - Diarrhea, unspecified Medications: New barium sulfate 2%(w/v) (Readi-Cat 2) TAKE FIRST BOTTLE 2 HOURS PRIOR TO EXAM, WAIT 1 HOUR THEN DRINK SECOND BOTTLE 450 mL PO DIRECTED 900 mL 0RF
[2024-07-01 13:00] VITALS: BP 134/70; PULSE 80; RESP 14; TEMP 36.4; O2SAT 97; BMI 32.3
--- OUTSIDE RECORDS SUMMARY | 2024-07-01 14:59 | XMS_ITS | Patient Health Record ---
Author Organization [facility] Address [address] [place] [address] Support Name Relationship Address Phone MELISA GARVEY Guarantor Unknown [phone] Reason For Referral No Information Plan Of Treatment No Information Insurance Providers Payer Name Payer Address Payer Phone Subscriber Number Group Number Insured Name Patient Relationship to Insured Coverage Start Date Coverage End Date [employer] [place] [address] [place] [address] [id number] 01 LIOR GARVEY Spouse - patient is the spouse of the insured
== END 2024-07-01 13:48 | disposition home or self-care (01) ==
PROVIDERS: PCP Nurse Practitioner Family; Visit Provider Nurse Practitioner Family
DX: K51.90 Ulcerative colitis, unspecified, without complications (principal); R19.7 Diarrhea, unspecified; R10.30 Lower abdominal pain, unspecified

== ENCOUNTER 2024-07-01 13:44 | Outpatient (REF) | payer OTHER, SELFPAY ==
[2024-07-01 17:51] LABS: Hematocrit 38.1 % (37.0-47.0); Hemoglobin 12.6 g/dl (12.0-16.0); Mean Corpuscular HGB Conc 33.1 g/dl (31.0-35.0); Mean Corpuscular Hemoglobin 28.6 pg (27.0-33.0); Mean Corpuscular Volume 86.4 fL (80.0-98.0); Mean Platelet Volume 9.7 fL (9.4-12.3); Platelet Count 380 X10*3/uL (160-400); Red Blood Count 4.41 X10*6/uL (4.20-5.50); Red Cell Distribution Width 13.1 % (11.0-16.0); White Blood Count 7.6 X10*3/uL (4.8-10.8)
[2024-07-01 19:00] LABS: Alanine Aminotransferase 18 U/L (0-31); Albumin Level 4.3 g/dL (3.5-5.0); Alkaline Phosphatase 59 U/L (39-117); Amylase 20 U/L (28-100); Anion Gap 10 (12-20); Aspartate Amino Transferase 17 U/L (5-31); Bilirubin Total 0.3 mg/dL (0.0-1.0); Blood Urea Nitrogen 15 mg/dL (9-16); Calcium 9.4 mg/dL (8.4-10.2); Carbon Dioxide 25 mmol/L (22-29); Chloride 108 mmol/L (96-108); Cholesterol 211 mg/dL (<200); Estimated Glomerular Filt Rate > 60; Glucose Random 98 mg/dL (60-115); HDL Cholesterol 50 mg/dL (>40); LDL Cholesterol Calculated 124 mg/dL (<100); Lipase 12 U/L (8-78); Potassium 3.9 mmol/L (3.3-5.1); Sodium 139 mmol/L (135-145); Total Protein 7.5 g/dL (6.5-8.0); Triglycerides 185 mg/dL (<150)
[2024-07-01 19:15] LABS: Vitamin D 25-OH Total 34.9 ng/mL (>30)
== END 2024-07-01 13:45 | disposition home or self-care (01) ==
LOC: HO.WFDLDS 13:44
PROVIDERS: Visit Provider Nurse Practitioner Family
DX: R10.30 Lower abdominal pain, unspecified (principal); K51.90 Ulcerative colitis, unspecified, without complications; R19.7 Diarrhea, unspecified; E78.5 Hyperlipidemia, unspecified; E55.9 Vitamin D deficiency, unspecified
CPT/HCPCS: 36415; 80053; 80061; 82150; 82306; 83690; 85027; 96127

== ENCOUNTER 2024-07-24 15:44 | Outpatient (REF) | payer OTHER, SELFPAY ==
--- NOTE | ~2024-07-24 | CT_ITS ---
EXAMINATION: CT ABDOMEN AND PELVIS WITH CONTRAST CLINICAL INFORMATION: Lower abdominal pain, unspecified, history of ulcerative colitis. COMPARISON: None available. TECHNIQUE: Multidetector volumetric images were obtained from the superior aspect of the liver through the pubic symphysis following administration 85 mL of Omnipaque 350 intravenous contrast. Sagittal and coronal reformatted images were obtained on the technologist's workstation. Oral contrast: No This CT examination was performed using dose optimization techniques as appropriate, variously including the following: *Automated exposure control *Adjustment of mA and/or kV according to patient size (this includes techniques or standardized protocols for targeted exams where dose is matched to indication/reason for exam; i.e. extremities or head) *Use of iterative reconstruction technique FINDINGS: LUNG BASES: The visualized lung bases are unremarkable. LIVER, GALLBLADDER, AND BILIARY TREE: The liver is normal in size, shape, and attenuation. No suspicious focal hepatic lesion or biliary ductal dilatation is present. There are a few scattered simple biliary cysts, largest in segment 2, measuring 2.2 x 1.4 cm. The gallbladder is unremarkable with no evidence of radiopaque gallstones, gallbladder wall thickening, or obvious pericholecystic inflammatory changes. PANCREAS: Unremarkable. SPLEEN: Unremarkable. ADRENAL GLANDS: Unremarkable. KIDNEYS AND URETERS: The kidneys are normal in size, shape, and attenuation. No hydronephrosis, hydroureter, or calculi seen. No perinephric stranding. There are tiny bilateral subcentimeter renal cysts. BLADDER: Unremarkable. GASTROINTESTINAL TRACT: The stomach is somewhat decompressed. The duodenum is normal. The small bowel is normal in caliber and course. No wall thickening or inflammation. The colon and rectum demonstrate no definitive wall thickening, abnormal dilatation, or inflammation. Normal appearance. -There are no CT features of appendicitis. ABDOMINAL WALL: No significant hernia is appreciated. LYMPH NODES: None enlarged by size criteria. VASCULAR: Minimal atheromatous vascular calcification. No aneurysm. PELVIC VISCERA: The uterus and adnexa are unremarkable. OSSEOUS STRUCTURES: No suspicious lytic or blastic bone lesions. Mild spinal degenerative changes. Normal-appearing SI joints. CT/CT abdomen pelvis w IV con IMPRESSION: No acute findings in the abdomen or pelvis. There is no evidence of acute colitis on this CT exam. Electronically signed by: Mason De La Torre MD 07/27/2024 08:06 JOSEY ARMENDARIZ RP
--- OUTSIDE RECORDS SUMMARY | 2024-07-24 15:47 | XMS_ITS | Patient Health Record ---
Author Organization [facility] Address [address] [place] [address] Support Name Relationship Address Phone MELISA GARVEY Guarantor Unknown [phone] Reason For Referral No Information Plan Of Treatment No Information Insurance Providers Payer Name Payer Address Payer Phone Subscriber Number Group Number Insured Name Patient Relationship to Insured Coverage Start Date Coverage End Date [employer] [place] [address] [place] [address] [id number] 01 LIOR GARVEY Spouse - patient is the spouse of the insured
[2024-07-24] MEDS: iohexoL 350 MG/ML 75 ML INFUS..BTL 85 ML IV (16:47)
== END 2024-07-24 15:45 | disposition home or self-care (01) ==
LOC: HO.CT 15:44
PROVIDERS: PCP Nurse Practitioner Family; Visit Provider Nurse Practitioner Family
DX: R10.30 Lower abdominal pain, unspecified (principal); K51.90 Ulcerative colitis, unspecified, without complications; R19.7 Diarrhea, unspecified
CPT/HCPCS: 74177; Q9967

== ENCOUNTER → 2024-07-24 15:46 | Outpatient (BNV) | payer OTHER, SELFPAY | PROVIDERS: PCP Nurse Practitioner Family; Visit Provider Radiology Diagnostic Radiology | DX: Z87.19 Personal history of other diseases of the digestive system (principal); K83.5 Biliary cyst | CPT/HCPCS: 74177 ==

== ENCOUNTER 2024-10-23 12:58 | Outpatient (AMB) | payer OTHER, SELFPAY ==
--- NOTE | 2024-10-23 13:00 | A.OFFPC_ITS ---
Vital Signs 10/23/24 13:04 Height 5 ft 4 in Weight 191 lb BMI 32.8 BP 122/70 Blood Pressure Location Lt brachial Position Sitting Respiration 12 Pulse 69 Pulse Source Pulse Oximeter Temp 97.2 F Temp Source Oral Pulse Oximetry (%) 99 Oxygen Delivery Method Room Air Intake Visit Reasons: 6 months routine fu HLD Vit D leg cramps Intake Note: 6 months routine follow up. Patient c/o swelling of both feet Wrapper Sorter Required: No Allergies Penicillins Adverse Reaction (Mild, Verified 10/23/24 13:09) rash Medication List - Last Reconciled 10/23/24 by STEVE Tavares- No Known Home Meds Tobacco use date assessed: 10/23/24 Dental Screening Dental Screen Date: 10/23/24 Did you have a dental visit in the last 12 months?: Yes Did you have a dental problem in the last 6 months where you did not have access to dental care?: No Was dental information given to patient?: Patient has dentist HPI HPI Comments History of Present Illness Details 64-year-old female with vitamin-D defici ency, recurrent aphthous ulcers, hx of ulcerative colitis, impaired fasting glucose, hyperlipidemia, obesity, former smoker, osteopenia, 07/2024 CT of abd: Minimal atheromatous vascular calcification. Health maintenance Flu vaccine declined DEXA 05/2024 Osteopenia based on the lowest T-score value of -1.1 in the lumbar spine applying World Health Organization criteria. Colonoscopy 09/2024 colon + polyp patho pending repeat 7 years Mammogram 2023 Tdap 2020 Pap Specialist GI History of Present Illness - The patient is a 64-year-old female pr esenting for a follow-up of chronic conditions. - Vitamin D deficiency, not maintained w ith supplementation, last levels 06/2024 WNL - Ulcerative colitis with a colonoscopy showing no current colitis activity. 09/2024 - Hyperlipidemia with elevated lipid lev els in June 2024. Not on Statin. 07/2024 CT of abd: Minimal atheromatous vascular calcification. + wt gain. Would like GLP1 for wt loss. - Osteopenia from a previous bone densit y scan 05/2024. Not on Ca+D - Reports sensation of swelling at the f eet, persistent, with no visible swelling or discoloration. walking on water balloons present for years; worse since onset; sx present all of the time. Leg/feet cramps. - IFG with normal a1c 04/2024 - Elevated bp at colon and gi appts. Nor mal home monitoring and today. Review of Systems - Gastrointestinal: Denies colitis sympt oms post-colonoscopy. - Cardiovascular: Reports no chest pain or shortness of breath; inquires about cholesterol management. - Musculoskeletal: Reports sensation of swelling in the bottoms of feet, feels spongy, without visible swelling. - Neurological: Reports tingling sensati on in toes when pressure applied. - Endocrine: Denies diabetes with accept able A1c previously recorded. - Metabolic: Notes concern about weight gain; discusses potential treatments. Physical Exam General: Well developed, well nourished, in no acute distress. Appears stated a ge. Head: Normocephalic, atraumatic. Eyes: Pupils are equal, round and reactive to light and accommodation. Conjunctivae are clear. Lungs: Clear to auscultation bilaterally. No rales, rhonchi or wheeze noted. Good air flow in all parham. Heart: Regular rate and rhythm. No murmurs, click, rubs or gallops are noted. No carotid bruit. Abdomen: Bowel sounds present in all quadrants. The abdomen is soft, nontender, with no masses or organomegaly noted. No hernias are noted. Musculoskeletal: Joints are nontender, without swelling, redness, or effusions. Pulses: Peripheral pulses are equal and palpable bilaterally. Extremities: No clubbing, cyanosis nor edema is noted. abnormal monofilament testing bilat R>L, pressure to pad of foot on L caused cramping like sensation, normal strength, tone and reflexes. Skin intact Psych: Mood and affect appropriate. Results - Labs: Cholesterol (Total 211, LDL 124, Triglycerides 185, HDL 50), Vitamin D in June 2024 was 34.9. - Diagnostics: Abdomen CT July 2024 showed minimal atherosclerotic calcifications. - Procedures: Colonoscopy September 2024 isela wed no signs of colitis; polyp removed with pending pathology Discussion Notes We discussed the management of her hyperlipidemia, vitamin D deficiency, osteopenia, and possible neuropathy symptoms. I explained the importance of rechecking her cholesterol levels and addressing high LDL levels. We talked about options, such as dietary changes and weight loss, with cholesterol- lowering medications like atorvastatin if required. Herbal supplements like [place] were discussed to help reduce cholesterol levels without prescription medication. We reviewed the potential significance of reported foot sensations, identifying it could be early neuropathy or related issues, and the need for further testing like nerve conduction studies or spinal imaging if symptoms persist. A referral to a weight management program was made. Further lab work was outlined, with results to be reviewed via the patient portal. We also addressed her blood pressure monitoring. Recommended vitamin D and calcium supplementation for osteopenia. Assessment and Plan 1. Hyperlipidemia - Repeat cholesterol labs today. - Discuss atorvastatin and [place] as options. 2. Vitamin D Deficiency Start OTC Viactiv Chews 3. Osteopenia - Recommend Viactive supplements. 4. Paresthesias - Further labs (A1c, Mg, Ph, Ferritin). - Nerve conduction study or MRI if requi red. 5. Weight Gain - Weight management program referral. 6. Elevated BP w/o HTN - Routine home monitoring advised. Patient Instructions - Get the cholesterol labs done as soon as possible. - Consider starting [place] supp lements. - Start Viactive supplements for bone he alth. - Monitor your blood pressure regularly at home. - Consider the weight management program to help with weight loss goals. - Check the portal for lab results and f urther instructions from me. - RTO Nov CPE, sooner PRN Consent Patient was informed and verbally consented to the use of an ambient scribe for clinic note documentation during this visit. Total time spent caring for the patient today was 40 minutes. This includes time spent before the visit reviewing the chart, time spent during the visit, and time spent after the visit on documentation, reviewing laboratory results, diagnostic imaging, medications, performing a medically necessary evaluation, counseling on diagnoses, care coordination, ordering appropriate tests, ordering appropriate medications, review of tests performed by other providers, reporting test results with the patient, communication with other healthcare providers. [facility] Medical History (Updated 10/23/24 @ 13:50 by STEVE Tavares-ALISHA) Breast adenoma Surgical History (Updated 09/30/24 @ 12:58 by STEVE Tavares-ALISHA) H/O breast surgery History of colonoscopy (~09/2024) Family History Mother Hypertension Paternal Grandfather Diabetes Paternal Grandmother Diabetes Father Cardiovascular disease Sister Cancer of kidney Social History (Updated 04/27/24 @ 11:25 by Roime Cristina MA) Household Members: Spouse Both parents involved: No Caregiver staying overnight: No Housing: House Are you a primary home care scheduler to a significant other at home: No Do you presently have visiting nurse or other home services: No 75 years or older and lives alone: No Alcohol intake: current Alcohol intake frequency: a few times a month Patient Tobacco Use Status: Never used Tobacco e-Cigarette/Vaping Use: Never Used Second Hand Smoke Exposure: No service: No Current occupational status: employed 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 Cognitive needs: No Hearing needs: No Vision needs: Yes (wear glasses) Questionnaire Thrive Questionnaire Date Thrive assessed: 07/01/24 I am a: Patient What is your living situation today?: I have a steady place to live Within the past 12 months, did the food you bought not last and you didn't have the money to get more?: Never true Within the past 12 months, did you worry whether your food would run out before you got money to buy more?: Never true Do you have trouble paying for medicines?: No Do you have trouble getting transportation to medical appointments?: No Do you have trouble paying your heating and electricity bill?: No Do you have trouble taking care of your child, family member or friend?: No Do you have trouble with day-to-day activities such as bathing, preparing meals, shopping, managing finances, etc.?: No Are you currently unemployed and looking for a job?: Yes Are you interested in more education?: Yes Please select the resources that you would like help with: None Currently or been in a relationship where the following occur: No concerns reported THRIVE Score: 0 BENJY-7 AMB Questionnaire BENJY-7 Date BENJY - 7 assessed: 07/01/24 Source: Developed by Drs. Froylan Pena, Heavenly Molina, Facundo Addison and colleagues, with an educational terrence from [employer]. Physical exam (Primary Care) BMI Assessment/Plan discussion: High BMI High, discussed plan: lifestyle Tobacco/Smoking Status: Tobacco use Status Tobacco use date assessed 04/27/24 10/23/24 13:00 Patient Tobacco Use Status Never used Tobacco 10/23/24 13:00 e-Cigarette/Vaping Use Never Used 10/23/24 13:00 Thrive Assessment: Date of Thrive Assessment Date Thrive assessed 07/01/24 10/23/24 13:00 Currently or been in a relationship where the following occur: No concerns reported Coding Level of Care Code Est Pt Level 5 (85795) Complex EM visit Add On G2211 Diagnoses Moderate mixed hyperlipidemia not requiring statin therapy E78.2 Hyperlipidemia type: moderate mixed hyperlipidemia not requiring statin therapy Vitamin D deficiency E55.9 Coronary artery disease involving [place] coronary artery of [place] heart without angina pectoris I25.10 Coronary Disease-Associated Artery/Lesion type: [place] artery [place] vs. transplanted heart: [place] heart Associated angina: without angina Obesity (BMI 30-39.9) E66.9 IFG (impaired fasting glucose) R73.01 Osteopenia of multiple sites M85.89 Osteopenia location: multiple sites Paresthesia of both feet R20.2 Assessment & Plan Assessment & Plan (1) Hyperlipidemia: Code(s): E78.5 - Hyperlipidemia, unspecified Category: Medical Qualifiers: Hyperlipidemia type: moderate mixed hyperlipidemia not requiring statin therapy Qualified Code(s): E78.2 - Mixed hyperlipidemia (2) Vitamin D deficiency: Code(s): E55.9 - Vitamin D deficiency, unspecified Category: Medical (3) CAD (coronary artery disease): Comment: 07/2024 CT of abd: Minimal atheromatous vascular calcification. Code(s): I25.10 - Atherosclerotic heart disease of [place] coronary artery without angina pectoris Category: Medical Qualifiers: Coronary Disease-Associated Artery/Lesion type: [place] artery [place] vs. transplanted heart: [place] heart Associated angina: without angina Qualified Code(s): I25.10 - Atherosclerotic heart disease of [place] coronary artery without angina pectoris (4) Obesity (BMI 30-39.9): Code(s): E66.9 - Obesity, unspecified Category: Medical (5) IFG (impaired fasting glucose): Code(s): R73.01 - Impaired fasting glucose Category: Medical (6) Osteopenia: Code(s): M85.80 - Other specified disorders of bone density and structure, unspecified site Category: Medical Qualifiers: Osteopenia location: multiple sites Qualified Code(s): M85.89 - Other specified disorders of bone density and structure, multiple sites (7) Paresthesia of both feet: Code(s): R20.2 - Paresthesia of skin Category: Medical Plan . Orders: Orders Lipid Panel Today E78.2 - Mixed hyperlipidemia, I25.10 - Atherosclerotic heart disease of [place] coronary artery without angina pectoris, R73.01 - Impaired fasting glucose Phosphorus Today E78.2 - Mixed hyperlipidemia, R20.2 - Paresthesia of skin Hemoglobin A1c Today E78.2 - Mixed hyperlipidemia, I25.10 - Atherosclerotic heart disease of [place] coronary artery without angina pectoris, R73.01 - Impaired fasting glucose Magnesium Today E78.2 - Mixed hyperlipidemia, R20.2 - Paresthesia of skin Ferritin Today E78.2 - Mixed hyperlipidemia, R20.2 - Paresthesia of skin Vitamin B12 and Folate Today E78.2 - Mixed hyperlipidemia, R20.2 - Paresthesia of skin Referrals Medical Weight Management Referral E66.9 - Obesity, unspecified, R73.01 - Impaired fasting glucose
--- OUTSIDE RECORDS SUMMARY | 2024-10-23 13:01 | XMS_ITS | Patient Health Record ---
Author Organization [facility] Address [address] [place] [address] Support Name Relationship Address Phone MELISA GARVEY Guarantor Unknown [phone] Reason For Referral No Information Plan Of Treatment No Information Insurance Providers Payer Name Payer Address Payer Phone Subscriber Number Group Number Insured Name Patient Relationship to Insured Coverage Start Date Coverage End Date [employer] [place] [address] [place] [address] [phone] [id number] LIOR GARVEY Spouse - patient is the spouse of the insured
[2024-10-23 13:04] VITALS: BP 122/70; PULSE 69; RESP 12; TEMP 36.2; O2SAT 99; BMI 32.8
== END 2024-10-23 13:47 | disposition home or self-care (01) ==
LOC: HO.HMCFM 12:59
PROVIDERS: PCP Nurse Practitioner Family; Visit Provider Nurse Practitioner Family
DX: E78.2 Mixed hyperlipidemia (principal); E66.9 Obesity, unspecified; Z68.32 Body mass index [BMI] 32.0-32.9, adult; E55.9 Vitamin D deficiency, unspecified; I25.10 Atherosclerotic heart disease of native coronary artery without angina pectoris; R73.01 Impaired fasting glucose; M85.89 Other specified disorders of bone density and structure, multiple sites; R20.2 Paresthesia of skin

== ENCOUNTER → 2024-10-23 12:58 | Outpatient (BNVA) | payer OTHER, SELFPAY | PROVIDERS: PCP Nurse Practitioner Family; Visit Provider Nurse Practitioner Family | DX: Z13.89 Encounter for screening for other disorder (principal) ==

== ENCOUNTER 2024-10-23 13:42 | Outpatient (REF) | payer OTHER, SELFPAY ==
[2024-10-23 17:52] LABS: Cholesterol 219 mg/dL (<200); HDL Cholesterol 55 mg/dL (>40); LDL Cholesterol Calculated 134 mg/dL (<100); Magnesium 2.1 mg/dL (1.6-2.6); Phosphorus 3.2 mg/dL (2.7-4.5); Triglycerides 151 mg/dL (<150)
[2024-10-23 18:07] LABS: Ferritin 19 ng/mL (10-250)
[2024-10-23 18:20] LABS: Folate 11.4 ng/mL (> or = 4.0); Vitamin B12 370 pg/mL (200-900)
[2024-10-24 07:09] LABS: Estimated Average Glucose 108 mg/dL; Hemoglobin A1C 112.4827 umol/L; Hemoglobin A1c % 5.4 % (<6.0); Total Hemoglobin (HGBA1C) 3174.8436 umol/L
== END 2024-10-23 13:43 | disposition home or self-care (01) ==
LOC: HO.WFDLDS 13:42
PROVIDERS: Visit Provider Nurse Practitioner Family
DX: I25.10 Atherosclerotic heart disease of native coronary artery without angina pectoris (principal); E78.2 Mixed hyperlipidemia; R73.01 Impaired fasting glucose; R20.2 Paresthesia of skin
CPT/HCPCS: 36415; 80061; 82607; 82728; 82746; 83036; 83735; 84100

== ENCOUNTER 2025-05-10 09:03 | Outpatient (AMB) | payer OTHER, SELFPAY ==
[2025-05-10 09:08] VITALS: BP 128/68; PULSE 72; RESP 12; TEMP 36.4; O2SAT 99; BMI 32.5
--- NOTE | 2025-05-10 09:10 | MHC.PC.OV ---
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: No Allergies Penicillins Adverse Reaction (Mild, Verified 05/10/25 09:11) rash Medication List - Last Reconciled 05/10/25 by FRED Tavares No Known Home Meds Tobacco use date assessed: 05/10/25 Dental Screening Dental Screen Date: 05/10/25 Did you have a dental visit in the last 12 months?: Yes Did you have a dental problem in the last 6 months where you did not have access to dental care?: No Was dental information given to patient?: Patient has dentist HPI HPI Comments History of Present Illness Details 64-year-old female with vitamin-D deficiency, recurrent aphthous ulcers, hx of ulcerative colitis, impaired fasting glucose, hyperlipidemia, obesity, former smoker, osteopenia, Minimal atheromatous vascular calcification (07/2024 CT of abd), fhx ovarian cancer (sister), multiple hepatic cysts and epiploic appendage(CT abd 12/2024) Fhx: Sister age 70 Dx ovarian ca Surgery: No changes Social: No changes Health maintenance DEXA 05/2024 Osteopenia based on the lowest T-score value of -1.1 in the lumbar spine applying World Health Organization criteria. Colonoscopy 09/2024 colon + polyp, repeat 7 years Mammogram 2023, will get done at [facility] Tdap 2020, Flu 03/2025 Pap Specialist GI Wt Mgmt didnt qualify based on insurance optho wears glasses, last exam 3-4 mo ago History of Present Illness The patient is a 64 year old female presenting for a complete physical exam. Hyperlipidemia: - The patient has a history of hyperlipidemia and was previously advised to start [place] bergamot. - She took the supplement for three months but then stopped for about two months before her recent blood work. - Recent labs from April 19, 2025, while she was off the supplement, showed a total cholesterol of 223 mg/dL, HDL of 55 mg/dL, triglycerides of 150 mg/dL, and LDL of 140 mg/dL. - These values were comparable to her previous results when her total cholesterol was 219 mg/dL, HDL was 55 mg/dL, triglycerides were 151 mg/dL, and LDL was 134 mg/dL. Osteopenia and Vitamin D Deficiency: - The patient has a history of osteopenia and vitamin D deficiency. - Her last DEXA scan was in May 2024 and is scheduled every other year, with the next one due in May 2026. - She was advised to take rxfy-feb-eqhtlnx Viactiv chews but has not been taking them. - Her vitamin D level remains low at 29 ng/mL as of her April 2025 labs. Impaired Fasting Glucose and Weight Management: - The patient has a history of impaired fasting glucose and a BMI of 32.5. - A referral to a weight management program was made, but she did not qualify for the program or medications as her insurance did not cover it. - She has previously used the Noom program with success, losing 30 pounds, and plans to restart it. - Recent lab work from April 2025 showed a normal fasting glucose of 90 mg/dL and a normal A1c of 5.4%. Gastrointestinal Issues: - The patient reported a recent 10-day episode of severe burning heartburn, which she managed with sqwq-yxh-tpwzpoa Prilosec. - This episode led to a 10-pound weight loss due to poor appetite. - She experienced two episodes of diarrhea on the first day but no vomiting, and the symptoms eventually resolved. - She notes a history of a nervous stomach and wonders if stress from her sister's illness contributed. - A prior colonoscopy and endoscopy were unremarkable. - OTC prilosec does cause tolerable dizziness. - Went to ED [facility] Summer 2024 for abd pain, reports having abnormal CT findings; unsure about details. I dont have these records but have requested for review. Paresthesia of Feet: - The patient continues to experience a sensation in her feet described as feeling like walking on bubbles. - This sensation is not painful and there are no open areas on her feet. Past Medical History - Vitamin D deficiency - Osteopenia - Impaired fasting glucose - Hyperlipidemia - Abdominal vascular calcifications, noted on CT in July 2024 - Recurrent GERD-like symptoms - Paresthesia of feet described as walking on bubbles - CT scan in January at [facility] emergency room for side pain, with a finding of a rare, self-resolving issue with connective tissues of the organs. Past Surgical History - No changes to surgical history reported. Family History - Her 70-year-old sister was recently diagnosed with ovarian cancer, which is not BRCA-related. - No other changes in family medical history were reported. Social History - Reports living with her . - Identifies as [place] and enjoys cooking. - Reports significant stress due to her sister's recent diagnosis of ovarian cancer. - Weight Management: Her BMI is 32.5. - She has previously used the Noom program successfully, losing 30 pounds, and intends to restart it after a recent lapse. - A referral for a medical weight management program was unsuccessful due to insurance not covering it. Health Maintenance - An order will be placed for her to complete her annual mammogram. - Lab orders are in the system for her to have repeat blood work done in approximately three months. - Follow-up is recommended in about four months to review repeat lab results. Review of Systems - General: Denies fever. Reports recent stress and unintentional weight loss. - Eyes: Reports slight change in vision requiring a stronger prescription. - Gastrointestinal: Reports a recent 10-day episode of severe burning heartburn, which has since resolved. Reports two episodes of diarrhea at the onset of the recent illness. Denies vomiting. Reports a history of a nervous stomach. - Musculoskeletal: Denies pain or tenderness in her neck. - Neurological: Reports a persistent non-painful sensation in her feet, like walking on bubbles. Reports experiencing dizziness with Prilosec. Physical Exam General: Well developed, well nourished, in no acute distress. Appears stated age. Head: Normocephalic, atraumatic. Eyes: Pupils are equal, round and reactive to light and accommodation. Conjunctivae are clear. Scleras nonicteric bilat. Vision grossly normal. Slightly stronger prescription noted. Ears: TMs clear AU, EACS WNL. A little bit of fluid behind both ears,but no infection. Nose: Patent, without discharge. Neck: No carotid bruit bilat. Supple, no adenopathy or thyromegaly. Breast: Edu on SBE. Mammogram due. Lungs: Clear to auscultation bilaterally. No rales, rhonchi or wheeze noted. Good air flow in all parham. Heart: Regular rate and rhythm. No murmurs, click, rubs or gallops are noted. Abdomen: Bowel sounds present in all quadrants. The abdomen is soft, nontender, with no masses or organomegaly noted. No hernias are noted. Mineral arthromatous vascular calcifications noted on abdomen CT. : Deferred. 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 Pulses: Peripheral pulses are equal and palpable bilaterally. Extremities: No clubbing, cyanosis nor edema is noted. No open areas on feet despite funny sensation when walking. Neurologic: Gait and station normal. Cranial Nerves 2-12 intact. Motor strength grossly symmetrical and intact. No sensory loss. Balance normal. Skin: No rashes, ulcers, or lesions noted. Turgor is good. Skin color is good. Hair and nails are without abnormalities. Psych: Normal eye contact, affect and mood appropriate, and normal interactions. Patient is alert and appropriate to context. Results - Labs from April 19, 2025 ([facility]): - Total Cholesterol: 223 mg/dL - HDL Cholesterol: 55 mg/dL - Triglycerides: 150 mg/dL - LDL Cholesterol: 140 mg/dL - Glucose: 90 mg/dL (Normal) - Hemoglobin A1c: 5.4% (Normal) - Vitamin D: 29 ng/mL (Low) - CBC: Platelet count slightly high at 401 K/uL; MCHC slightly low at 31.7%. Remainder of CBC is normal. - CMP: Electrolytes, kidney, and liver function are normal. - TSH, Iron, Ferritin, and B12 are normal. - Other Diagnostics: - DEXA Scan (May 2024): Showed osteopenia. - Abdominal CT (Jul 2024): Noted mild atherosclerotic vascular calcifications. - Colonoscopy (Sep 2024): Normal findings. Medical Decision Making The patient is a 64-year-old female presenting for a complete physical exam with several chronic conditions and health maintenance needs. Her hyperlipidemia remains stable but elevated, with recent labs taken while she was not taking [place] bergamot. The plan is for her to restart the supplement for three months and then repeat a lipid panel to assess its efficacy, as she prefers this over statin therapy. Her history of impaired fasting glucose has resolved, with a recent fasting glucose of 90 mg/dL and a normal A1c. No active management is needed at this time, but weight management remains a goal, and she will re-engage with the Noom program, which has been successful for her in the past. For osteopenia and vitamin D deficiency, she has been non-adherent with the recommended Viactiv chews, and her vitamin D level remains low. I have reinforced the importance of starting this supplement to support bone health. Her recent gastrointestinal symptoms are likely stress-related, given her recent family stressor and history of a nervous stomach, especially since her prior endoscopic evaluations were normal. She reports Prilosec caused dizziness, so I have recommended a trial of famotidine (Pepcid) daily for a few weeks to calm her stomach. Health maintenance screenings were reviewed. She is due for a mammogram, and I will place an order for her. I will also request the records from her ER visit and recent [facility] labs for a complete record. The mildly elevated platelet count and low MCHC are not clinically concerning at this time but will be monitored on repeat labs. Plan 1. Hyperlipidemia - The patient will restart [place] bergamot. - She will continue the supplement for three months. - A repeat lipid panel will be ordered to be drawn after three months of consistent use to evaluate the efficacy of the supplement. 2. Osteopenia And Vitamin D Deficiency - The patient was advised to start taking lwda-ajg-nmvvwcw Viactiv chews to supplement calcium and vitamin D. - Follow-up DEXA scan is due in May 2026. 3. Weight Management - The patient will resume using the Noom program for weight loss, as it has been effective for her previously. 4. Gastrointestinal Discomfort - Due to dizziness with Prilosec, it was recommended she could try a course of wxsj-ymw-zstirpk famotidine (Pepcid) daily for about four weeks to manage her symptoms and calm her stomach. - Records from her ER visit at [facility] will be obtained for review. - Notes rec'd after she left, multiple hepatic cysts and epiploic appendage(CT abd 12/2024). Will recommend she f/u with GI on this, message sent via portal. Patient Instructions - Restart your [place] bergamot supplement and take it for the next three months. - After three months, please go for the blood tests that have been ordered to check your cholesterol levels. - Please start taking the wkqj-sig-acekweo Viactiv chews for your bone health and vitamin D levels. - For your stomach discomfort, you can try taking jajk-cav-fmkuubf famotidine (Pepcid) daily for about a month, as the Prilosec made you feel dizzy. - An order has been placed for you to get your yearly mammogram. - Continue with your plan to use the Noom program for weight management. - Please schedule a follow-up appointment in about four months to review your lab results. Consent Patient was informed and verbally consented to the use of an ambient scribe for clinic note documentation during this visit. An additional 20 minutes was spent addressing the problem(s) noted at todays visit. This includes time spent before the visit reviewing the chart, time spent during the visit, and time spent after the visit on documentation reviewing laboratory results, diagnostic imaging, medications, performing a medically necessary evaluation, counseling on diagnoses, care coordination, ordering appropriate tests, ordering appropriate medications, review of tests performed by other providers, reporting test results with the patient, communication with other healthcare providers. [facility] Medical History (Updated 05/10/25 @ 09:53 by STEVE Tavares-ALISHA) Breast adenoma Surgical History (Updated 09/30/24 @ 12:58 by STEVE Tavares-ALISHA) H/O breast surgery History of colonoscopy (~09/2024) Family History Mother Hypertension Paternal Grandfather Diabetes Paternal Grandmother Diabetes Father Cardiovascular disease Sister Cancer of kidney Social History (Updated 11/26/24 @ 13:23 by Kiersten Mccollum [facility]) Household Members: Spouse Both parents involved: No Caregiver staying overnight: No Housing: House Are you a primary hearing healthcare practitioner to a significant other at home: No Do you presently have visiting nurse or other home services: No 75 years or older and lives alone: No Alcohol intake: current Alcohol intake frequency: holidays/special occasions only Patient Tobacco Use Status: Never used Tobacco e-Cigarette/Vaping Use: Never Used Second Hand Smoke Exposure: No service: No Current occupational status: employed 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 1. Little interest or pleasure in doing things: not at all 2. Feeling down, depressed, or hopeless: not at all 3. Trouble falling or staying asleep, or sleeping too much: not at all 4. Feeling tired or having little energy: not at all 5. Poor appetite or overeating: not at all 6. Feeling bad about yourself - or that you are a failure or have let yourself or your family down: not at all 7. Trouble concentrating on things, such as reading the newspaper or watching television: not at all 8. Moving or speaking so slowly that other people could have noticed. Or the opposite - being so fidgety or restless that you have been moving around a lot more than usual: not at all 9. Thoughts that you would be better off or of hurting yourself in some way: not at all Total score: 0 Depression Screening Interpretation: Negative Depression Screening Done: Yes 94433 - PHQ-9 Billing: Yes Source: Developed by Drs. Froylan Pena, Heavenly Molina, Facundo Addison and colleagues, with an educational terrence from [employer]. Thrive Questionnaire Date Thrive assessed: 05/10/25 I am a: Patient What is your living situation today?: I have a steady place to live Within the past 12 months, did the food you bought not last and you didn't have the money to get more?: Never true Within the past 12 months, did you worry whether your food would run out before you got money to buy more?: Never true Do you have trouble paying for medicines?: No Do you have trouble getting transportation to medical appointments?: No Do you have trouble paying your heating and electricity bill?: No Do you have trouble taking care of your child, family member or friend?: No Are you currently unemployed and looking for a job?: No Are you interested in more education?: No Please select the resources that you would like help with: None Currently or been in a relationship where the following occur: No concerns reported THRIVE Score: 0 AUDIT C Alcohol Use Questionnaire (AUDIT-C) 1. How often do you have a drink containing alcohol?: Never 2. How many drinks containing alcohol do you have on a typical day when you are drinking?: 1 or 2 3. How often do you have six or more drinks on one occasion?: Never Total Score: 0 Score Reviewed/Action Taken: Yes BENJY-7 AMB Questionnaire BENJY-7 Date BENJY - 7 assessed: 05/10/25 Feeling nervous, anxious, or on edge: 0 = Not at all Not being able to stop or control worryin = Not at all Worrying too much about different things: 0 = Not at all Trouble relaxin = Not at all Being so restless that it is hard to sit still: 0 = Not at all Becoming easily annoyed or irritable: 0 = Not at all Feeling afraid as if something awful might happen: 0 = Not at all Total BENJY-7 score (0-4 normal; 5-9 mild; 10-14 moderate; 15-21 severe): 0 Source: Developed by Drs. Froylan Pena, Heavenly Molina, Facundo Addison and colleagues, with an educational terrence from [employer]. BENJY-7 Assessment Billing BENJY-7 Assessment Tool: BENJY-7 Assessment 64236 Physical exam (Primary Care) Vital Signs: Last Vital Signs Temp 97.6 F 05/10/25 09:08 Pulse 72 05/10/25 09:08 Resp 12 05/10/25 09:08 BP 128/68 05/10/25 09:08 Pulse Ox 99 05/10/25 09:08 Oxygen Delivery Method Room Air 05/10/25 09:08 BMI result Body Mass Index 32.5 Tobacco/Smoking Status: Tobacco use Status Tobacco use date assessed 05/10/25 05/10/25 09:11 Patient Tobacco Use Status Never used Tobacco 05/10/25 09:10 e-Cigarette/Vaping Use Never Used 05/10/25 09:10 PHQ-9: PHQ-9 Score PHQ-9: Total score 0 05/10/25 09:42 Depression Screening Interpretation: Negative Thrive Assessment: Date of Thrive Assessment Date Thrive assessed 05/10/25 05/10/25 09:12 Currently or been in a relationship where the following occur: No concerns reported Coding Level of Care Code Est Pt Level 3 (90069) Est Pt Prev Care 40-64y(14346) Diagnoses Encounter for general adult medical examination without abnormal findings Z00.00 Coronary artery disease involving [place] coronary artery of [place] heart without angina pectoris I25.10 Associated angina: without angina Coronary Disease-Associated Artery/Lesion type: [place] artery [place] vs. transplanted heart: [place] heart Moderate mixed hyperlipidemia not requiring statin therapy E78.2 Hyperlipidemia type: moderate mixed hyperlipidemia not requiring statin therapy IFG (impaired fasting glucose) R73.01 Osteopenia of multiple sites M85.89 Osteopenia location: multiple sites Family history of ovarian cancer Z80.41 GERD (gastroesophageal reflux disease) K21.9 Obesity (BMI 30-39.9) E66.9 Vitamin D deficiency E55.9 History of mammogram Z92.89 Hepatic cyst K76.89 Epiploic appendagitis K63.89 Additional Codes BENJY-7 Assessment Billing - BENJY-7 Assessment Tool: BENJY-7 Assessment 02850 ([id number]) PHQ-9 - 43951 - PHQ-9 Billing: Yes ([id number]) Assessment & Plan Assessment & Plan (1) Encounter for general adult medical examination without abnormal findings: Onset Date: ~05/10/25 Code(s): Z00.00 - Encounter for general adult medical examination without abnormal findings Category: Medical (2) CAD (coronary artery disease): Comment: 07/2024 CT of abd: Minimal atheromatous vascular calcification. Code(s): I25.10 - Atherosclerotic heart disease of [place] coronary artery without angina pectoris Category: Medical Qualifiers: Associated angina: without angina Coronary Disease-Associated Artery/Lesion type: [place] artery [place] vs. transplanted heart: [place] heart Qualified Code(s): I25.10 - Atherosclerotic heart disease of [place] coronary artery without angina pectoris (3) Hyperlipidemia: Code(s): E78.5 - Hyperlipidemia, unspecified Category: Medical Qualifiers: Hyperlipidemia type: moderate mixed hyperlipidemia not requiring statin therapy Qualified Code(s): E78.2 - Mixed hyperlipidemia (4) IFG (impaired fasting glucose): Code(s): R73.01 - Impaired fasting glucose Category: Medical (5) Osteopenia: Code(s): M85.80 - Other specified disorders of bone density and structure, unspecified site Category: Medical Qualifiers: Osteopenia location: multiple sites Qualified Code(s): M85.89 - Other specified disorders of bone density and structure, multiple sites (6) Family history of ovarian cancer: Comment: sister age 70 (sister brca negative) Code(s): Z80.41 - Family history of malignant neoplasm of ovary Category: Medical (7) GERD (gastroesophageal reflux disease): Code(s): K21.9 - Gastro-esophageal reflux disease without esophagitis Category: Medical (8) Obesity (BMI 30-39.9): Code(s): E66.9 - Obesity, unspecified Category: Medical (9) Vitamin D deficiency: Code(s): E55.9 - Vitamin D deficiency, unspecified Category: Medical (10) History of mammogram: Onset Date: ~2023 Code(s): Z92.89 - Personal history of other medical treatment Category: Medical (11) Hepatic cyst: Comment: multiple hepatic cysts and epiploic appendage(CT abd 12/2024) Code(s): K76.89 - Other specified diseases of liver Category: Medical (12) Epiploic appendagitis: Onset Date: ~12/2024 Comment: multiple hepatic cysts and epiploic appendage(CT abd 12/2024) Code(s): K63.89 - Other specified diseases of intestine Category: Medical Plan . Patient Instructions: Health screenings for women You should visit your health care provider from time to time, even if you are healthy. The purpose of these visits is to: Screen for medical issues Assess your risk for future medical problems Encourage a healthy lifestyle Update vaccinations and other preventive care services Help you get to know your provider in case of an illness Information Even if you feel fine, you should still see your provider for regular checkups. These visits can help you avoid problems in the future. For example, the only way to find out if you have high blood pressure is to have it checked regularly. High blood sugar and high cholesterol levels also may not have any symptoms in the early stages. A simple blood test can check for these conditions. There are specific times when you should see your provider or receive specific health screenings. The [place] Preventive Services Task Force publishes a list of recommended screenings. Below are screening guidelines for women ages 18 to 39. BLOOD PRESSURE SCREENING Your blood pressure should be checked at least once every 3 to 5 years if: Your blood pressure is in the normal range (top number less than 120 mm Hg and bottom number less than 80 mm Hg) You don't have risk factors for high blood pressure Ask your provider if you need your blood pressure checked more often if: The top number is 120 to 129 mm Hg or the bottom number is 70 to 79 mm Hg You have diabetes, heart disease, kidney problems, are overweight, or have certain other health conditions You have a first-degree relative with high blood pressure You are Black You had high blood pressure during a If the top number is 130 mm Hg or greater or the bottom number is 80 mm Hg or greater, this is considered stage 1 hypertension. Schedule an appointment with your provider to learn how you can reduce your blood pressure. Watch for blood pressure screenings in your area. Ask your provider if you can stop in to have your blood pressure checked. BREAST CANCER SCREENING Experts do not agree about the benefits of breast self-exams in finding breast cancer or saving lives. Talk to your provider about what is best for you. A screening mammogram is not recommended for most women under age 40. Your provider may discuss and recommend mammograms, MRI scans, or ultrasounds if you have an increased risk for breast cancer, such as: A mother or sister who had breast cancer at a young age (most often starting screening earlier than the age the close relative was diagnosed) You carry a high-risk genetic marker CERVICAL CANCER SCREENING Cervical cancer screening should start at age 21 years unless your provider advises otherwise. After the first test: Women ages 21 through 29 should have a Pap test every 3 years. Exoprts do not agree on whether HPV testing is recommended for this age group. Women ages 30 through 65 should be screened with either a Pap test every 3 years or the HPV test every 5 years or both tests every 5 years (called cotesting ). Women who have been treated for precancer (cervical dysplasia) should continue to have Pap tests for 20 years after treatment or until age 65, whichever is longer. If you have had your uterus and cervix removed (total hysterectomy), and you have not been diagnosed with cervical cancer or precancer (high grade cervical neoplasia), you do not need cervical cancer screening. CHOLESTEROL SCREENING Cholesterol screening should begin at: Age 45 for women with no known risk factors for coronary heart disease Age 20 for women with known risk factors for coronary heart disease Repeat cholesterol screening should take place: Every 5 years for women with normal cholesterol levels More often if changes occur in lifestyle (including weight gain and diet) More often if you have diabetes, heart disease, kidney problems, or certain other conditions DIABETES SCREENING You should be screened for diabetes starting at age 35 and then repeated every 3 years if you have no risk factors for diabetes. Screening may need to start earlier and be repeated more often if you have other risk factors for diabetes, such as: You have a first degree relative with diabetes. You are overweight or have obesity. You have high blood pressure, prediabetes, or a history of heart disease. Screening for diabetes should be done if you are planning to become and you are overweight and have other risk factors such as high blood pressure. DENTAL EXAM Go to the dentist once or twice every year for an exam and cleaning. Your dentist will evaluate if you need more frequent visits. EYE EXAM Have an eye exam every 5 to 10 years before age 40. If you have vision problems, have an eye exam every 2 years or more often if recommended by your provider. You should have an eye exam that includes an examination of your retina (back of your eye) at least every year if you have diabetes. IMMUNIZATIONS Commonly needed vaccines include: Flu shot: get one every year. COVID-19 vaccine: ask your provider what is best for you. Tetanus-diphtheria and acellular pertussis (Tdap) vaccine: have one at or after age 19 as one of your tetanus-diphtheria vaccines if you did not receive it as an adolescent. Tetanus-diphtheria: have a booster (or Tdap) every 10 years. Varicella vaccine: receive 2 doses if you never had chickenpox or the varicella vaccine. Hepatitis B vaccine: receive 2, 3, or 4 doses, depending on your exact circumstances. Measles, mumps, and rubella (MMR) vaccine: receive 1 to 2 doses if you are not already immune to MMR. Your provider can tell you if you are immune. Ask your provider about the human papillomavirus (HPV) vaccine if: You have not received the HPV vaccine in the past You have not completed the full vaccine series (you should catch up on this shot) Ask your provider if you should receive other immunizations if you have certain health problems that increase your risk for some diseases such as pneumonia. INFECTIOUS DISEASE SCREENING Women who are sexually active should be screened for chlamydia and gonorrhea up until age 25. Women 25 years and older should be screened for chlamydia and gonorrhea if at high risk. Screening for hepatitis C: All adults ages 18 to 79 should get a one-time test for hepatitis C. people should be screened at every . Screening for human immunodeficiency virus (HIV): All people ages 15 to 65 should get a one-time test for HIV. Depending on your lifestyle and medical history, you may also need to be screened for infections such as syphilis and HIV, as well as other infections. PHYSICAL EXAM All adults should visit their provider from time to time, even if they are healthy. The purpose of these visits is to: Screen for disease Assess your risk of future medical problems Encourage a healthy lifestyle Update your vaccinations and other preventive care services Maintain a relationship with a provider in case of an illness Your height, weight, and BMI should be checked at every exam. During your exam, your provider may ask you about: Depression and anxiety Diet and exercise Alcohol and tobacco use Safety issues, such as using seat belts, smoke detectors, and intimate partner violence Your medicines and risk for interactions SKIN SELF-EXAM Your provider may check your skin for signs of skin cancer, especially if you're at high risk, such as if you: Have had skin cancer before Have close relatives with skin cancer Have a weakened immune system OTHER SCREENING Talk with your provider about colon cancer screening if you have a strong family history of colon cancer or polyps, or if you have had inflammatory bowel disease or polyps yourself. Routine bone density screening of women under 40 is not recommended.
== END 2025-05-10 09:46 | disposition home or self-care (01) ==
LOC: HO.HMCFM 09:05
PROVIDERS: PCP Nurse Practitioner Family; Visit Provider Nurse Practitioner Family
DX: Z00.00 Encounter for general adult medical examination without abnormal findings (principal); I25.10 Atherosclerotic heart disease of native coronary artery without angina pectoris; E66.9 Obesity, unspecified; Z68.32 Body mass index [BMI] 32.0-32.9, adult; E78.2 Mixed hyperlipidemia; R73.01 Impaired fasting glucose; M85.89 Other specified disorders of bone density and structure, multiple sites; Z80.41 Family history of malignant neoplasm of ovary; K21.9 Gastro-esophageal reflux disease without esophagitis; E55.9 Vitamin D deficiency, unspecified; Z92.89 Personal history of other medical treatment; K76.89 Other specified diseases of liver; K63.89 Other specified diseases of intestine

== ENCOUNTER → 2025-05-10 09:03 | Outpatient (BNVA) | payer OTHER, SELFPAY | PROVIDERS: PCP Nurse Practitioner Family; Visit Provider Nurse Practitioner Family | DX: Z00.00 Encounter for general adult medical examination without abnormal findings (principal); I25.10 Atherosclerotic heart disease of native coronary artery without angina pectoris; E78.2 Mixed hyperlipidemia; R73.01 Impaired fasting glucose; M85.89 Other specified disorders of bone density and structure, multiple sites; K21.9 Gastro-esophageal reflux disease without esophagitis; E55.9 Vitamin D deficiency, unspecified; E66.9 Obesity, unspecified; K76.89 Other specified diseases of liver; K63.89 Other specified diseases of intestine; Z92.89 Personal history of other medical treatment; Z80.41 Family history of malignant neoplasm of ovary; Z68.32 Body mass index [BMI] 32.0-32.9, adult | CPT/HCPCS: 96127 ==